=== PATIENT | female | born 1990 | race Caucasian/White ===

== ENCOUNTER 2017-04-26 03:54 | Emergency (ER) | payer MEDICAID ==
[2017-04-26 04:04] VITALS: TEMP 98.4; O2SAT 96
--- NOTE | 2017-04-26 05:15 | EDPHY ---
H & P Stated Complaint: Benzo withdrawl Time Seen by Provider: 04/26/17 04:34 HPI/ROS: HPI The patient presents with concern for benzodiazepine withdrawal. She has been taking clonazepam for the last 5 years intermittently and stopped taking it about 7 days ago. Her psychiatrist is out of state and does not feel comfortable giving her this medication any more. She has also been off of Effexor and Adderall. She did get her prescription for Effexor filled today though has only taken 1 dose. She says she is experiencing insomnia and generally feels "off". She denies any suicidal or homicidal ideations. She had the day off of work today, however did not find a psychiatrist, though no she needs to. REVIEW OF SYSTEMS Constitutional: No fever, no chills. Eyes: No discharge. ENT: No sore throat. Cardiovascular: No chest pain, no palpitations. Respiratory: No cough, no shortness of breath. Gastrointestinal: No abdominal pain, no vomiting. Genitourinary: No hematuria. Musculoskeletal: No back pain. Skin: No rashes. Neurological: No headache. PMHx: Anxiety and depression Soc Hx: Works at a [employer] PHYSICAL General Appearance: Alert, no distress Eyes: Pupils equal and round no pallor or injection ENT, Mouth: Mucous membranes moist Respiratory: There are no retractions, lungs are clear to auscultation Cardiovascular: Regular rate and rhythm Gastrointestinal: Abdomen is soft and non-tender, no masses, bowel sounds normal Neurological: A&O, moves all extremities Skin: Warm and dry, no rashes Musculoskeletal: Neck is supple non tender Extremities: symmetrical, full range of motion Psychiatric: Patient is oriented X 3, there is no agitation Source: Patient Exam Limitations: No limitations - Personal History LMP (Females 10-55): 15-21 Days Ago Current Tetanus/Diphtheria Vaccine: Yes Current Tetanus Diphtheria and Acellular Pertussis (TDAP): Yes - Medical/Surgical History Hx Asthma: No Hx Chronic Respiratory Disease: No Hx Diabetes: No Hx Cardiac Disease: No Hx Renal Disease: No Hx Cirrhosis: No Hx Alcoholism: No Hx HIV/AIDS: No Hx Splenectomy or Spleen Trauma: No Other PMH: ANXIETY/COLITIS, depression, - Social History Smoking Status: Current every day smoker Constitutional: Initial Vital Signs Temperature (C) 36.9 C 04/26/17 04:01 Heart Rate 104 H 04/26/17 04:01 Respiratory Rate 18 04/26/17 04:01 Blood Pressure 134/88 H 04/26/17 04:01 O2 Sat (%) 96 04/26/17 04:01 O2 Delivery Mode Room Air Allergies/Adverse Reactions: No Known Allergies Allergy (Unverified 06/21/15 14:27) Home Medications: Medication Instructions Recorded Adderall 20 mg (RX) 06/21/15 Effexor 04/26/17 Medical Decision Making Differential Diagnosis: This is a 26-year-old female with anxiety and depression who presents after being off her usual benzodiazepines for 7 days. She feels she is experiencing withdrawal and has insomnia and generally does not feel well. On exam, she is mildly tachycardic and somewhat anxious. Differential diagnosis includes benzodiazepine withdrawal, alcohol withdrawal, anxiety attack. In the emergency room, I have asked [facility] to provide the patient with some resources for outpatient mental health. I do not want to prescribe her a benzodiazepine from the emergency room as there is no solid plan for ongoing outpatient treatment. Departure - Departure Disposition: Home, Routine, Self-Care Clinical Impression: Benzodiazepine withdrawal Qualifiers: Complication of substance-induced condition: with unspecified complication Qualified Code(s): F13.239 - Sedative, hypnotic or anxiolytic dependence with withdrawal, unspecified Condition: Good Instructions: [facility] Additional Instructions: Please follow-up with [facility]. You should return to the emergency room if your feeling unsafe or like you may hurt herself. Referrals: [facility],. [Clinic] - As per Instructions
[2017-04-26 05:29] VITALS: BP 125/90; PULSE 95; RESP 16
== END 2017-04-26 05:28 | disposition home or self-care (01) ==
DX: F13.239 Sedative, hypnotic or anxiolytic dependence with withdrawal, unspecified (principal); F17.200 Nicotine dependence, unspecified, uncomplicated

== ENCOUNTER 2019-03-06 18:53 | Emergency (ER) | payer MEDICAID ==
[2019-03-06 18:59] VITALS: BP 134/91
[2019-03-06] MEDS ORDERED: clonazePAM 0.5 MG TAB PO ONE (19:07)
--- NOTE | 2019-03-06 19:11 | EDPHY ---
H & P Stated Complaint: klonipin withdrawl , vomiting, body aches Time Seen by Provider: 03/06/19 19:03 HPI/ROS: CHIEF COMPLAINT: Klonopin withdrawal HISTORY OF PRESENT ILLNESS: Patient is a 28-year-old female who takes Klonopin twice daily for anxiety. She ran out about 6 days ago and had difficulty getting a hold of her prescriber. She finally got a hold of them yesterday in the left prescription at the office but when she went there it was closed and was closed again today. She describes having a burning sensation throughout her skin like fire ants are biting her everywhere. She also complains of nausea and has vomited once. No seizure-like activity. She states that she has had seizures before when withdrawing. Severity: Moderate Modifying factors: None REVIEW OF SYSTEMS: Constitutional: denies: chills, fever, recent illness, recent injury EENTM: denies: blurred vision, double vision, nose congestion Respiratory: denies: cough, shortness of breath Cardiac: denies: chest pain, irregular heart rate, lightheadedness, palpitations Gastrointestinal/Abdominal: See HPI denies: abdominal pain, diarrhea, blood streaked stools Genitourinary: denies: dysuria, frequency, hematuria, pain Musculoskeletal: denies: joint pain, muscle pain Skin: See HPI denies: lesions, rash, jaundice, bruising Neurological: denies: headache, numbness, paresthesia, tingling, dizziness, weakness Hematologic/Lymphatic: denies: blood clots, easy bleeding, easy bruising Immunologic/allergic: denies: HIV/AIDS, transplant 10 systems reviewed and negative except as noted EXAM: GENERAL: Well-appearing, well-nourished and in no acute distress. HEAD: Atraumatic, normocephalic. EYES: Pupils equal round and reactive to light, extraocular movements intact, sclera anicteric, conjunctiva are normal. ENT: TMs normal, nares patent, oropharynx clear without exudates. Moist mucous membranes. NECK: Normal range of motion, supple without lymphadenopathy or JVD. LUNGS: Breath sounds clear to auscultation bilaterally and equal. No wheezes rales or rhonchi. HEART: Regular rate and rhythm without murmurs, rubs or gallops. ABDOMEN: Soft, nontender, normoactive bowel sounds. No guarding, no rebound. No masses appreciated. BACK: No CVA tenderness, no spinal tenderness, step-offs or deformities EXTREMITIES: Normal range of motion, no pitting or edema. No clubbing or cyanosis. NEUROLOGICAL: Cranial nerves II through XII grossly intact. Normal speech, normal gait. 5/5 strength, normal movement in all extremities, normal sensation , normal reflexes PSYCH: Normal mood, normal affect. SKIN: Warm, dry, normal turgor, no visible rashes or lesions. Source: Patient Exam Limitations: No limitations - Personal History LMP (Females 10-55): Over 28 Days Ago Current Tetanus Diphtheria and Acellular Pertussis (TDAP): Yes - Medical/Surgical History Hx Asthma: No Hx Chronic Respiratory Disease: No Hx Diabetes: No Hx Cardiac Disease: No Hx Renal Disease: No Hx Cirrhosis: No Hx Alcoholism: No Hx HIV/AIDS: No Hx Splenectomy or Spleen Trauma: No Other PMH: ANXIETY/COLITIS, depression, - Social History Smoking Status: Current every day smoker Constitutional: Initial Vital Signs Temperature (C) 36.9 C 03/06/19 18:54 Heart Rate 98 03/06/19 18:54 Respiratory Rate 16 03/06/19 18:54 Blood Pressure 134/91 H 03/06/19 18:54 O2 Sat (%) 98 03/06/19 18:54 O2 Delivery Mode Room Air Allergies/Adverse Reactions: No Known Allergies Allergy (Unverified 06/21/15 14:27) Home Medications: Medication Instructions Recorded Adderall 20 mg (RX) 06/21/15 Ambien 03/06/19 Klonopin 03/06/19 PRISTIQ 03/06/19 Trileptal 03/06/19 clonazePAM [Clonazepam] 0.5 mg PO BID #7 tablet 03/06/19 Medical Decision Making ED Course/Re-evaluation: Patient is well-appearing and has stable vital signs. No tremors. No abdominal tenderness. She is here requesting a medication refill. I will give her dose of Klonopin now on a prescription that she can fill within the next hour. She plans to go directly to the pharmacy. She should have 2 days worth and then she can get her prescription from her prescriber on Friday. She is very happy with this plan. She declines further treatment and does not wish to stay here in the emergency department any longer. She is eager to get to the pharmacist. Differential Diagnosis: Partial list of the Differential diagnosis considered include but were not limited to; medication refill, benzodiazepine withdrawal, anxiety and although unlikely based on the history and physical exam, I also considered seizure, electrolyte abnormality, gastroenteritis, appendicitis, . I discussed these differential diagnoses and the plan with the patient as well as the usual and expected course. The patient understands that the diagnosis is provisional and that in medicine we are not always correct and that further workup is often warranted. Usual and customary warnings were given. All of the patient's questions were answered. The patient was instructed to return to the emergency department should the symptoms at all worsen or return, otherwise to followup with the physician as we discussed. - Data Points Medications Given: Discontinued Medications Clonazepam (Klonopin) 0.5 mg PO EDNOW ONE Stop: 03/06/19 19:08 Last Admin: 03/06/19 19:15 Dose: 0.5 mg Departure - Departure Disposition: Home, Routine, Self-Care Clinical Impression: Medication refill Medication withdrawal Qualifiers: Substance type: sedative, hypnotic or anxiolytic Qualified Code(s): F13.239 - Sedative, hypnotic or anxiolytic dependence with withdrawal, unspecified Condition: Fair Instructions: Medicine Refill (ED) Referrals: Sondra Ag [Non Staff Provider (MD)] - 1-2 days without fail Prescriptions: clonazePAM [Clonazepam] 0.5 mg PO BID #7 tablet
== END 2019-03-06 19:18 | disposition home or self-care (01) ==
DX: Z76.0 Encounter for issue of repeat prescription (principal); F13.239 Sedative, hypnotic or anxiolytic dependence with withdrawal, unspecified; F41.9 Anxiety disorder, unspecified